=== PATIENT | female | born 1975 | race African-American/Black ===

== ENCOUNTER 2020-12-05 08:12 | Emergency (ER) | payer OTHER ==
[2020-12-05 08:19] VITALS: BP 121/70; PULSE 80; TEMP 98.2; BMI 24.7
[2020-12-06 11:07] LABS: SARS-CoV-2 NAA Not Detected (Not Detected)
== END 2020-12-05 11:19 | disposition home or self-care (01) ==
LOC: JER 08:12
DX: J06.9 Acute upper respiratory infection, unspecified (principal)
CPT/HCPCS: 87804; 99283-25; C9803; U0003; U0005

== ENCOUNTER 2021-08-13 19:10 | Emergency (ER) | payer OTHER ==
[2021-08-13 19:29] VITALS: TEMP 97.6; BMI 24.1
[2021-08-13] MEDS ORDERED: KETOROLAC TROMETHAMINE 30 MG/1 ML VIAL IM ONE (19:49)
[2021-08-13] MEDS ORDERED: ACETAMINOPHEN 500 MG TABLET (FP) PO ONE (19:54)
[2021-08-13] MEDS ORDERED: LIDOCAINE 5% TOPICAL PATCH TP ONE (19:54)
[2021-08-13] MEDS ORDERED: ACETAMINOPHEN 325 MG TABLET (FP) ONE (19:59)
[2021-08-13] MEDS ORDERED: LIDOCAINE 5% TOPICAL PATCH ONE (19:59)
[2021-08-13] MEDS ORDERED: KETOROLAC TROMETHAMINE 30 MG/1 ML VIAL ONE (19:59)
[2021-08-13 20:46] VITALS: BP 123/71; PULSE 74
[2021-08-14] MEDS ORDERED: LIDOCAINE PATCH REMOVAL MC SCH (08:00)
== END 2021-08-13 20:46 | disposition home or self-care (01) ==
LOC: JER 19:10
PROC: 3E023GC Introduction of Other Therapeutic Substance into Muscle, Percutaneous Approach (ICD-10-PCS; principal; 2021-08-13)
DX: S39.012A Strain of muscle, fascia and tendon of lower back, initial encounter (principal); X50.0XXA Overexertion from strenuous movement or load, initial encounter
CPT/HCPCS: 99284-25